=== PATIENT | male | born 1945 ===

== ENCOUNTER 2020-12-03 19:50 | Emergency (ER) | payer OTHER ==
[~2020-12-03] VITALS: Ht 170.2 cm; Wt 72.6 kg
[2020-12-03] MEDS ORDERED: ARICEPT10 MG (20:07)
[2020-12-03] MEDS ORDERED: NAMENDA XR28 MG (20:07)
[2020-12-03] MEDS ORDERED: MELATIN3 MG (20:07)
[2020-12-03] MEDS ORDERED: MIRTAZAPINE30 M1 (20:07)
[2020-12-04] MEDS ORDERED: NOXIFOL-D32500 UNIT PO (11:28)
[2020-12-04] MEDS ORDERED: VITAMIN C500 M6 PO (11:28)
[2020-12-04] MEDS ORDERED: MELATONIN10 MG PO (11:28)
[2020-12-04] MEDS ORDERED: ZINC GLUCONATE100 MG PO (11:28)
== END 2020-12-04 14:42 | disposition home or self-care (01) ==
LOC: ER 19:50
DX: R09.02 Hypoxemia (principal); R05 Cough; R50.9 Fever, unspecified; R53.81 Other malaise; Z20.822 Contact with and (suspected) exposure to COVID-19; G30.8 Other Alzheimer's disease; F02.80 Dementia in other diseases classified elsewhere, unspecified severity, without behavioral disturbance, psychotic disturbance, mood disturbance, and anxiety

== ENCOUNTER 2020-12-07 11:15 | Inpatient (IN) | payer OTHER ==
[~2020-12-07] VITALS: Ht 172.7 cm; Wt 54.4 kg
[~2020-12-07 11:15] MED LIST: ARICEPT10 MG; MELATIN3 MG; MELATONIN10 MG PO; MIRTAZAPINE30 M1; NAMENDA XR28 MG; NOXIFOL-D32500 UNIT PO; VITAMIN C500 M6 PO; ZINC GLUCONATE100 MG PO
== END 2020-12-11 13:40 | disposition expired | DRG 177 ==
LOC: ER 11:15 → SEC-K 12-08 15:50 → ICU-2 12-08 15:50
PROVIDERS: ADMIT Internal Medicine; ATTEND Internal Medicine
PROC: 4A033R1 Measurement of Arterial Saturation, Peripheral, Percutaneous Approach (ICD-10-PCS; principal; 2020-12-08)
PROC: XW033E5 Introduction of Remdesivir Anti-infective into Peripheral Vein, Percutaneous Approach, New Technology Group 5 (ICD-10-PCS; 2020-12-08)
PROC: 8E0ZXY6 Isolation (ICD-10-PCS; 2020-12-08)
PROC: XW0 New Technology, Anatomical Regions, Introduction (ICD-10-PCS; 2020-12-08)
PROC: 4A12X4Z Monitoring of Cardiac Electrical Activity, External Approach (ICD-10-PCS; 2020-12-08)
PROC: 5A09457 Assistance with Respiratory Ventilation, 24-96 Consecutive Hours, Continuous Positive Airway Pressure (ICD-10-PCS; 2020-12-08)
DX: U07.1 COVID-19 (principal); J12.82 Pneumonia due to coronavirus disease 2019; I21.A1 Myocardial infarction type 2; A41.9 Sepsis, unspecified organism; N17.8 Other acute kidney failure; E87.0 Hyperosmolality and hypernatremia; I24.9 Acute ischemic heart disease, unspecified; N39.0 Urinary tract infection, site not specified; M62.82 Rhabdomyolysis; E86.0 Dehydration; G30.9 Alzheimer's disease, unspecified; F02.80 Dementia in other diseases classified elsewhere, unspecified severity, without behavioral disturbance, psychotic disturbance, mood disturbance, and anxiety; E11.65 Type 2 diabetes mellitus with hyperglycemia; R09.02 Hypoxemia; D69.6 Thrombocytopenia, unspecified; C61 Malignant neoplasm of prostate; E55.9 Vitamin D deficiency, unspecified; Z66 Do not resuscitate; B96.20 Unspecified Escherichia coli [E. coli] as the cause of diseases classified elsewhere